=== PATIENT | female | born 1960 | race Caucasian/White ===

== ENCOUNTER 2017-07-14 09:56 | Day surgery (SDC) | payer OTHER ==
[2017-07-14 11:26] LABS: HEMATOCRIT 43.5 % (36.0-48.0); MCH 32.8 pg (26.0-34.0); MCHC 34.5 g/dL (31.0-37.0); MEAN PLATELET VOLUME 9.3 fL (7.4-10.4); RBC 4.58 10x6/uL (4.00-5.40); RDW 13.9 % (11.5-14.5); WBC 7.1 10x3/uL (4.8-10.8)
[2017-07-14] MEDS ORDERED: DURAGESIC1 PATCH .1 TRANSDERM (12:00)
[2017-07-14] MEDS ORDERED: HYDROCHLOROTHIA25 MG PO (12:02)
[2017-07-14] MEDS ORDERED: LIPITOR80 MG PO (12:02)
[2017-07-14] MEDS ORDERED: WELLBUTRIN SR150 MG PO (12:02)
[2017-07-14] MEDS ORDERED: ATIVAN1 MG PO (12:03)
[2017-07-14] MEDS ORDERED: SYNTHROID25 MCG PO (12:03)
[2017-07-14] MEDS ORDERED: TOPROL XL25 MG PO (12:04)
[2017-07-14 12:10] VITALS: BP 134/76; BMI 30.9
[2017-07-14] MEDS ORDERED: PROTONIX40 MG PO (14:07)
--- NOTE | 2017-07-15 17:35 | OP ---
PATIENT NAME: YANET MATTHEWS MEDICAL RECORD: [id number] :60 [facility] DATE: SURGEON: PUJA MCKEON MD DATE OF OPERATION: 07/14/2017 PROCEDURE: EGD with biopsy. REFERRING PHYSICIAN: Dr. Elizabeth De La Garza. INDICATIONS: Ms. Matthews is a delightful 57-year-old woman, who presents for followup of gastric and duodenal ulcers. She had a profound upper GI bleeding in December [address] [facility]. She had been drinking quite a bit of alcohol as well as taking BC powders, aspirin, and been on steroids. EGD (with Dr. Mcneil) on 12/31/2016 showed very mild distal esophagitis, one esophageal varix at the 2 o'clock position without visible vessel, very small hiatal hernia, small gastric diverticulum in the fundus, erosive gastritis, multiple gastric ulcers, duodenal bulbar ulcer, and erosive duodenitis. She has been on Protonix 40 mg daily and has been avoiding BC powders, nonsteroidal anti-inflammatory drugs, and alcohol. Her CBC today shows a white blood cell count 7.1, hemoglobin 15, MCV of 95, and platelet count 160,000. She presents for followup EGD to document healing of gastric ulcers. PREMEDICATIONS: Total IV anesthesia (propofol 100 mg). INSTRUMENT: Olympus video gastroscope. PROCEDURE AND FINDINGS: After receiving informed consent, Ms. Matthews's posterior pharynx was anesthetized with Cetacaine spray, placed in left lateral decubitus position and sedated as per anesthesia. After achieving adequate level of sedation, gastroscope was introduced per orally and advanced to the duodenum without difficulty. The esophageal mucosa was without strictures or masses. I did not any see any esophageal varices on this exam. The Z line was slightly irregular. A small sliding type hiatal hernia is present. Gastric mucosa was notable for moderate prepyloric and antral erythema and there were few prepyloric erosions. There were no antral or gastric ulcers noted. There were also streaks of erythema noted in the body of the stomach. Pylorus was patent and competent. Antral biopsies were obtained to rule out Helicobacter pylori. There is no evidence of residual duodenal ulcers and the duodenal mucosa appeared normal through the second portion. Gastroscope was then withdrawn. Ms. Matthews dams tolerated the procedure well, no immediate complications. ASSESSMENT: 1. Small sliding type hiatal hernia. 2. Moderate gastritis with a few antral erosions. 3. Gastric ulcers had healed. 4. Small gastric diverticulum. RECOMMENDATIONS: 1. Follow up histopathology. 2. Continue Protonix 40 mg daily. 3. Avoid nonsteroidal anti-inflammatory drugs. 4. Follow up in GI clinic for liver evaluation in an individual with previous history of esophageal varices. TRANSINT:[id number] Voice Confirmation ID: [id number] DOCUMENT ID: [id number] OPERATIVE REPORT [id number] YANET MATTHEWS, PUJA VILLASEÑOR at 1735 CC: ELIZABETH DE LA GARZA MD [id number] DICTATION DATE: 07/14/17 1352 [employer]: 07/14/17 1425 [facility] 07/14/17 [id number] [place] [address]
== END 2017-07-14 14:25 | disposition home or self-care (01) ==
LOC: D.OPS 09:56
PROVIDERS: Internal Medicine Gastroenterology
DX: I85.00 Esophageal varices without bleeding (principal); I10 Essential (primary) hypertension; K21.9 Gastro-esophageal reflux disease without esophagitis; E03.9 Hypothyroidism, unspecified; K29.70 Gastritis, unspecified, without bleeding; K44.9 Diaphragmatic hernia without obstruction or gangrene; Z01.812 Encounter for preprocedural laboratory examination

== ENCOUNTER 2018-07-13 09:57 | Day surgery (SDC) | payer OTHER ==
[~2018-07-13] VITALS: Ht 162.6 cm; Wt 75.0 kg
--- NOTE | ~2018-07-13 | OP ---
PATIENT NAME: YANET MATTHEWS MEDICAL RECORD: [id number] :60 [facility] DATE: SURGEON: PUJA MCKEON MD DATE OF OPERATION: 07/13/2018 PROCEDURE: EGD with biopsy. REFERRING PHYSICIAN: Liset Ceja MD INDICATIONS: Ms. Matthews is a delightful 58-year-old woman with a history of gastric and duodenal ulcers. She has been taking nonsteroidal anti-inflammatory drugs. Recently had an episode of hematemesis as well as melenic stool. Today, her hemoglobin is 13.4 with an MCV of 97.8 and platelet count of 166. She presents for outpatient EGD. PREMEDICATIONS: Total IV anesthesia (ASA 3, history of liver disease), propofol 175 mg. INSTRUMENT: Olympus video gastroscope. PROCEDURE AND FINDINGS: After receiving informed consent, Ms. Matthews's posterior pharynx was anesthetized with Cetacaine spray. She was placed in left lateral decubitus position and sedated as per anesthesia. After achieving adequate level of sedation, gastroscope was introduced per orally and advanced to duodenum without difficulty. Esophageal mucosa was without erythema, ulcers, strictures, or masses. Specifically, no esophageal varices were seen on this exam. Small hiatal hernia is present. Gastric mucosa was notable for moderate prepyloric and antral erythema with brown pigment in the antrum suggestive of recent bleeding. Within the prepyloric area was a small, but cratered ulcer, measuring approximately 0.5 cm in size. No visible vessel or active bleeding. Antral biopsies were obtained to rule out Helicobacter pylori. No lesions were seen in the cardia, fundus nor in the body of the stomach. Pylorus was patent and competent. Duodenal mucosa was without erythema or ulcers, appeared normal through the second portion. Reinspection of the cardia and fundus showed no obvious gastric varices. Gastroscope was withdrawn. Ms. Matthews tolerated the procedure well. No immediate complications. ASSESSMENT: 1. Cratered ulcer in the prepyloric area likely secondary to nonsteroidal anti-inflammatory drugs. 2. Gastritis, status post antral biopsy. 3. Small hiatal hernia. RECOMMENDATIONS: 1. Follow up histopathology. 2. Avoid nonsteroidal anti-inflammatory drugs. 3. Protonix 40 mg p.o. b.i.d. for 30 days and then 1 p.o. daily and continue. 4. Follow up EGD in 3 months to document healing of gastric ulcer. TRANSINT:[id number] Voice Confirmation ID: [id number] DOCUMENT ID: [id number] OPERATIVE REPORT [id number] YANET MATTHEWS TERRI MD at 1828 CC: LISET CEJA MD [id number] DICTATION DATE: 07/13/18 1239 [employer] SPECIALIST: 07/13/18 1300 [facility] 07/13/[address] [address]
[~2018-07-13 09:57] MED LIST: ATIVAN1 MG PO; DURAGESIC1 PATCH .1 TRANSDERM; HYDROCHLOROTHIA25 MG PO; LIPITOR80 MG PO; PROTONIX40 MG PO; SYNTHROID25 MCG PO; TOPROL XL25 MG PO; WELLBUTRIN SR150 MG PO
[2018-07-13 10:27] LABS: BASOPHILS 0.2 % (0-2); HEMOGLOBIN 13.4 g/dL (12-16); IMMATURE GRANULOCYTES 0.2 % (0-5); LYMPHOCYTES 23.4 % (15-50); MCH 32.8 pg (26.0-34.0); MCHC 33.5 g/dL (31.0-37.0); MCV 97.8 fL (80.0-100.0); MEAN PLATELET VOLUME 9.1 fL (7.4-10.4); MONOCYTES 6.2 % (2-11); PLATELET COUNT 166 10x3/uL (130-400); RBC 4.09 10x6/uL (4.00-5.40); WBC 8.7 10x3/uL (4.8-10.8)
[2018-07-13] MEDS ORDERED: PEPCID AC20 MG PO (10:40)
[2018-07-13] MEDS ORDERED: BUPROPION XL300 MG PO (10:41)
[2018-07-13 10:47] VITALS: BP 136/75; Ht 162.6 cm; Wt 75.0 kg
== END 2018-07-13 13:31 | disposition home or self-care (01) ==
LOC: D.OPS 09:57
PROVIDERS: Internal Medicine Gastroenterology
DX: K25.9 Gastric ulcer, unspecified as acute or chronic, without hemorrhage or perforation (principal); K29.50 Unspecified chronic gastritis without bleeding; K44.9 Diaphragmatic hernia without obstruction or gangrene; Z87.898 Personal history of other specified conditions; Z79.1 Long term (current) use of non-steroidal anti-inflammatories (NSAID); Z01.812 Encounter for preprocedural laboratory examination

== ENCOUNTER 2018-12-15 09:54 | Day surgery (SDC) | payer OTHER ==
[~2018-12-15] VITALS: Ht 162.6 cm; Wt 74.5 kg
[~2018-12-15 09:54] MED LIST changes: +BUPROPION XL300 MG PO; +PEPCID AC20 MG PO
[2018-12-15 10:48] LABS: HEMATOCRIT 37.2 % (36.0-48.0); HEMOGLOBIN 12.5 g/dL (12-16); LYMPHOCYTES 26.1 % (15-50); MCH 29.5 pg (26.0-34.0); MCHC 33.6 g/dL (31.0-37.0); MCV 87.7 fL (80.0-100.0); MEAN PLATELET VOLUME 9.4 fL (7.4-10.4); NEUTROPHILS 68.9 % (40-80); RBC 4.24 10x6/uL (4.00-5.40); RDW 16.5 % (11.5-14.5); WBC 9.2 10x3/uL (4.8-10.8)
[2018-12-15] MEDS ORDERED: PROTONIX40 MG PO (10:54)
[2018-12-15 10:55] LABS: PLATELET COUNT 260 10x3/uL (130-400)
[2018-12-15 11:02] VITALS: Ht 162.6 cm; Wt 74.5 kg
--- NOTE | 2018-12-19 10:17 | OP ---
PATIENT NAME: YANET MATTHEWS MEDICAL RECORD: [id number] :60 LOCATION:[facility] ADMISSION DATE: SURGEON: PUJA MCKEON MD DATE OF OPERATION: 12/15/2018 PROCEDURE: EGD with biopsy. REFERRING PHYSICIAN: Dr. Liset Ceja INDICATIONS: Ms. Matthews is a delightful 58-year-old woman with a history of gastric and duodenal ulcers. She has been taking nonsteroidal anti-inflammatory drugs and had had an episode of hematemesis and melenic stool, underwent an EGD on 07/13/2018 with findings showing a cratered ulcer in the prepyloric area, gastritis, and a small hiatal hernia. Antral biopsies were negative for Helicobacter pylori. She was on b.i.d. dosing of Protonix 40 mg for a month and then daily and she continues on daily Protonix 40 mg. She presents for followup EGD. She has had no further episodes of hematemesis or melena and today, her hemoglobin is 12.5 with an MCV of 87.7. She presents for outpatient followup EGD. PREMEDICATIONS: Total IV anesthesia (propofol 160 mg). INSTRUMENT: Olympus video gastroscope, [id number]. PROCEDURE AND FINDINGS: After receiving informed consent, Ms. Matthews's posterior pharynx was anesthetized using Cetacaine spray. She was placed in left lateral decubitus position and sedated as per anesthesia. After achieving an adequate level of sedation, gastroscope was introduced per orally and advanced in duodenum without difficulty. Esophageal mucosa was without erythema, ulcers, strictures, or masses. No varices were observed. Small hiatal hernia was present. Gastric mucosa was notable for moderate prepyloric and antral erythema with heaped up folds. Under one of the heaped up folds, there was a persistent ulcer base more shallow superficial and less cratered than on previous EGD in July 2018. Biopsies were taken adjacent to the ulcer and in the antrum to rule out Helicobacter pylori. No lesions were seen along the incisura, cardia, fundus or in the body of the stomach. Pylorus was patent and competent. Duodenal mucosa was without erythema or ulcers, appeared normal through the second portion. Gastroscope was then withdrawn. Ms. Matthews tolerated the procedure well, no immediate complications. ASSESSMENT: Persistent prepyloric back/antral ulcer, more superficial than on less cratered and more superficial than on previous EGD, but persistent. RECOMMENDATIONS: 1. Continue to avoid anti-inflammatories. 2. Follow up histopathology. 3. Increase Protonix to 40 mg p.o. b.i.d. 4. Add Sucralfate 1 gram p.o. b.i.d. 5. Follow up EGD in 6 months. TRANSINT:[id number] Voice Confirmation ID: [id number] DOCUMENT ID: [id number] OPERATIVE REPORT [id number] YANET MATTHEWS TERRI MD at 1017 CC: LISET CEJA MD [id number] DICTATION DATE: 12/15/18 1212 [employer]TER: 12/15/18 1330 [facility] 12/15/18 [address] [place] [address]
== END 2018-12-15 13:00 | disposition home or self-care (01) ==
LOC: D.OPS 09:54
PROVIDERS: ATTEND Internal Medicine Gastroenterology
DX: K25.7 Chronic gastric ulcer without hemorrhage or perforation (principal); K44.9 Diaphragmatic hernia without obstruction or gangrene; Z79.1 Long term (current) use of non-steroidal anti-inflammatories (NSAID); Z01.812 Encounter for preprocedural laboratory examination